=== PATIENT | male | born 1985 ===

== ENCOUNTER 2020-12-29 23:11 | Emergency (ER) | payer SELFPAY ==
[2020-12-29 23:12] VITALS: BP 108/85; PULSE 107; RESP 18; TEMP 36.9; O2SAT 95; BMI 29.0
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
== END 2020-12-29 23:35 | disposition left against medical advice (07) ==
LOC: ED 23:42
PROVIDERS: Emergency Provider Emergency Medicine
DX: Z04.1 Encounter for examination and observation following transport accident (principal); Z53.21 Procedure and treatment not carried out due to patient leaving prior to being seen by health care provider; G43.909 Migraine, unspecified, not intractable, without status migrainosus; F17.210 Nicotine dependence, cigarettes, uncomplicated
CPT/HCPCS: 99283